=== PATIENT | male | born 1965 | race Caucasian/White ===

== ENCOUNTER 2022-01-29 12:11 | Outpatient (REF) | payer OTHER, SELFPAY | END 2022-01-29 12:12 | disposition home or self-care (01) | LOC: LBN 12:11 | PROVIDERS: PCP Internal Medicine; Visit Provider Nurse Practitioner Gerontology | DX: N53.19 Other ejaculatory dysfunction (principal); Z12.5 Encounter for screening for malignant neoplasm of prostate | CPT/HCPCS: 84153 ==